=== PATIENT | female | born 1955 | race Caucasian/White ===

== ENCOUNTER 2016-07-20 08:46 | Outpatient (CLI) | payer OTHER | END 2016-07-20 08:47 | disposition home or self-care (01) | DX: Z12.2 Encounter for screening for malignant neoplasm of respiratory organs (principal); I71.4 Abdominal aortic aneurysm, without rupture; F17.210 Nicotine dependence, cigarettes, uncomplicated ==

== ENCOUNTER 2016-08-26 15:39 | Outpatient (CLI) | payer OTHER ==
--- NOTE | 2016-08-27 16:40 | Mammography Report ---
DIGITAL SCREENING MAMMOGRAM: 08/26/2016 CLINICAL INDICATION: A 61-year-old for screening. COMPARISON: 01/2015, 02/2013. TECHNIQUE: Routine CC and MLO projections as well as bilateral laterally exaggerated craniocaudal vi ews were obtained of the breasts. The breasts again demonstrate heterogeneously dense fibroglandular parenchyma bilaterally. Coarse an d punctate, typically benign calcifications are present. No suspicious masses, clustered microcalcif ication, or regions of architectural distortion are appreciated. IMPRESSION: BENIGN FINDINGS. RECOMMENDATION: ROUTINE ANNUAL SCREENING UNLESS OTHERWISE CLINICALLY INDICATED. BIRADS CATEGORY: 2, BENIGN FINDINGS. STANDARD QUALIFYING STATEMENTS 1. This examination was reviewed with the aid of Computed-Aided Detection (CAD). 2. A negative or benign imaging report should not delay biopsy if clinically suspicious findings are present. Consider surgical consultation if warranted. More than 5% of cancers are not identified b y imaging. 3. Dense breasts may obscure an underlying neoplasm. JOB #: [id number] EXT JOB #:[id number]
== END 2016-08-26 15:40 | disposition home or self-care (01) ==
LOC: DI.N 15:39
PROVIDERS: ATTEND Physician Assistant Medical
DX: Z12.31 Encounter for screening mammogram for malignant neoplasm of breast (principal)
CPT/HCPCS: 77067

== ENCOUNTER 2017-04-07 16:48 | Outpatient (CLI) | payer MEDICAID ==
--- NOTE | 2017-04-08 10:06 | Ultrasound Preliminary Report ---
Exam: US RETROPERITONEAL LIMITED IMPRESSION: Distal abdominal aortic aneurysm measuring up to 4.5 cm. Recommend correlate with any ron or imaging of the abdomen for stability. [facility] SITE ID: [id number]
--- NOTE | 2017-04-08 10:29 | Ultrasound Report ---
EXAM: AORTIC DOPPLER ULTRASOUND EXAM DATE: 04/07/2017 05:01 PM. CLINICAL HISTORY: Abdominal aortic aneurysm. COMPARISON: CT chest 07/20/2016. TECHNIQUE: Real-time sonographic imaging of retroperitoneal vascular structures, including color-flow , Doppler flow and spectral analysis was performed by the hospital cleaning specialist. Multiple retail account representative static images were saved for review. FINDINGS: Aorta: The abdominal aorta was adequately visualized. Moderate to severe atherosclerosis in the abdom inal aorta with large lobulated and likely calcified plaques. Fusiform aneurysmal dilatation of the distal aorta measuring up to 4.5 cm. This was only partially vi sualized on prior chest CT where the visualized portion measuring up to 4.5 cm. Aorta: Proximal: Sagittal AP: 2.0 cm. Mid: Transverse: 1.6 x 2.2 cm. Distal: Transverse: 4.5 x 4.0 cm. Iliacs: Right Iliac: Transverse: 1.0 x 0.78 cm. Left Iliac: Transverse: 1.1 x 0.98 cm. Distal Aorta PSV: 109 cm/sec, AAA. Iliac Vessels: The visualized proximal common iliac arteries are normal in caliber. Other: None. IMPRESSION: Distal abdominal aortic aneurysm measuring up to 4.5 cm. Recommend correlate with any ron or imaging of the abdomen for stability. [facility] Referring Provider Line: [phone] SITE ID: [id number]
== END 2017-04-07 16:49 | disposition home or self-care (01) ==
LOC: DI 16:48
PROVIDERS: ATTEND Physician Assistant Medical
DX: I71.4 Abdominal aortic aneurysm, without rupture (principal)
CPT/HCPCS: 76775

== ENCOUNTER 2017-10-10 08:00 | Outpatient (CLI) | payer MEDICAID ==
[2017-10-10 13:04] LABS: BASOPHILS % (AUTO) 0.6 %; EOSINOPHILS # (AUTO) 0.2 10^3/uL (0.0-0.7); EOSINOPHILS % (AUTO) 2.1 %; LYMPHOCYTES # (AUTO) 1.6 10^3/uL (1.5-3.5); LYMPHOCYTES % (AUTO) 21.3 %; MEAN CORPUSCULAR HEMOGLOBIN 29.3 pg (27.0-31.0); MEAN CORPUSCULAR HGB CONC 32.4 g/dL (32.0-36.0); MEAN CORPUSCULAR VOLUME 90.4 fL (81.0-99.0); MEAN PLATELET VOLUME 8.7 fL (7.9-10.8); MONOCYTES # (AUTO) 0.7 10^3/uL (0.0-1.0); MONOCYTES % (AUTO) 10.3 %; NEUTROPHILS # (AUTO) 4.8 10^3/uL (1.5-6.6); NEUTROPHILS % (AUTO) 65.7 %; PLT - PLATELET COUNT 281 10^3/uL (130-450); RED BLOOD COUNT 4.79 10^6/uL (4.20-5.40); RED CELL DISTRIBUTION WIDTH 14.6 % (12.0-15.0); WHITE BLOOD COUNT 7.3 x10^3/uL (4.8-10.8)
[2017-10-10 13:20] LABS: ALBUMIN 3.4 g/dL (3.2-5.5); ALKALINE PHOSPHATASE 66 IU/L (42-121); ALT ALANINE AMINOTRANSFERASE 40 IU/L (10-60); AST ASPARTATE AMINOTRANSFERASE 23 IU/L (10-42); BILIRUBIN,TOTAL 0.6 mg/dL (0.2-1.0); BUN - BLOOD UREA NITROGEN 12 mg/dL (6-20); CALCIUM 8.9 mg/dL (8.5-10.3); CARBON DIOXIDE - CO2 25 mmol/L (21-32); CHLORIDE 104 mmol/L (101-111); CHOL/HDL RATIO 6.8 (<4.4); CHOLESTEROL 191 mg/dL; CREATININE 0.7 mg/dL (0.4-1.0); GFR - MDRD 85 (>89); GLUCOSE 116 mg/dL (70-100); HDL CHOLESTEROL 28 mg/dL; LDL CHOLESTEROL,CALCULATED 138 mg/dL; LDL/HDL RATIO 4.9 (<4.4); SODIUM 138 mmol/L (135-145); TOTAL PROTEIN 6.9 g/dL (6.7-8.2); VLDL CHOLESTEROL 25 mg/dL
== END 2017-10-10 08:01 | disposition home or self-care (01) ==
LOC: LAB.WCP 08:00
PROVIDERS: ATTEND Physician Assistant Medical
DX: Z00.00 Encounter for general adult medical examination without abnormal findings (principal)
CPT/HCPCS: 36415; 80053; 80061; 83721; 84443; 85025

== ENCOUNTER 2017-12-24 11:11 | Outpatient (CLI) | payer MEDICAID | END 2017-12-24 11:12 | disposition home or self-care (01) | LOC: RT 11:11 | PROVIDERS: ATTEND Internal Medicine Gastroenterology | DX: I10 Essential (primary) hypertension (principal) | CPT/HCPCS: 93005 ==

== ENCOUNTER 2017-12-29 06:15 | Day surgery (SDC) | payer MEDICAID ==
[2017-12-29] MEDS ORDERED: ceFAZolin 2 GM/50 ML 2 GM/50 ML BAG IV ONE (06:30)
[2017-12-29] MEDS ORDERED: LACTATED RINGERS 1,000 ML IV ONE (06:30)
--- NOTE | 2017-12-29 07:20 | ANESTHESIA ---
Pre-Anesthesia VS, & Labs - NPO >8 hours - Is Patient ?: No - Diagnosis Right inguinal hernia (Ramsey Lau P) Right inguinal hernia (Christelle Johnson) - Procedure Right inguinal hernia repair (Ramsey Lau) Right inguinal hernia repair (Christelle Johnson) Vital Signs: Temp Pulse Resp BP Pulse Ox 36.6 C 54 L 18 166/88 H 97 12/29/17 06:30 12/29/17 06:30 12/29/17 06:30 12/29/17 06:30 12/29/17 06:30 Height 5 ft 7 in Weight (kg) 83.3 kg Home Medications and Allergies Home Medications: Ambulatory Orders Albuterol Sulfate [Proair Hfa Inhaler] 2 inhaler IH BID 12/26/17 Losartan [Cozaar] 2 tab PO DAILY 12/26/17 Mometasone/Formoterol [Dulera 200 Mcg/5 Mcg Inhaler] 2 inhaler IH BID 12/26/17 Albuterol Sulfate [Proair Hfa Inhaler] 2 inhaler IH BID 12/26/17 Losartan [Cozaar] 2 tab PO DAILY 12/26/17 Mometasone/Formoterol [Dulera 200 Mcg/5 Mcg Inhaler] 2 inhaler IH BID 12/26/17 Allergies/Adverse Reactions: Allergies Allergy/AdvReac Type Severity Reaction Status Date / Time Penicillins Allergy Rash Verified 11/12/14 19:29 Anes History & Medical History - Anesthetic History Anesthesia Complications: reports: No previous complications - Medical History Cardiovascular: reports: Congestive heart failure, Hypertension, Other Pulmonary: reports: COPD Gastrointestinal: reports: None Urinary: reports: None Neuro: reports: None Musculoskeletal: reports: Osteoarthritis, Chronic back pain, Other Endocrine/Autoimmune: reports: Other Skin: reports: Psoriasis Smoking Status: Current every day smoker Psychosocial: reports: No issues indicated - Surgical History Eyes Ears Nose Throat (EENT): Other Gynecologic: Tubal ligation, Other Results - EKG Results EKG Comparison: Reviewed EKG Exam General: Alert, Oriented x3 Dental: Dentures full Upper, Dentures full Lower Mouth Opening: Greater than 4 Fingerbreadths Mallampati classification: II Respiratory: Lungs clear, Decreased breath sounds Cardiovascular: Regular rate, Normal S1, Normal S2 Mental/Cognitive Status: Alert/Oriented X3 Plan Anesthesia Type: MAC Consent for Procedure(s) Verified and Reviewed: Yes Code Status: Attempt Resuscitation ASA classification: 3-Severe systemic disease Is this case an emergency?: No
[2017-12-29] MEDS ORDERED: LIDOCAINE 1%-EPI 1:100000 30 ML MDV ONE (07:21)
[2017-12-29] MEDS ORDERED: BUPIVACAINE 0.5%-EPI 1:200000 PF 30 ML VIAL ONE ×2 (07:21→07:56)
[2017-12-29] MEDS ORDERED: BUPIVACAINE 0.5% PF 30 ML VIAL ONE ×2 (07:22→08:12)
[2017-12-29] MEDS ORDERED: ceFAZolin 1 GM VIAL ONE (07:24)
[2017-12-29] MEDS ORDERED: GLYCOPYRROLATE 1 MG/5 ML VIAL IVP ONE (07:30)
[2017-12-29] MEDS ORDERED: KETAMINE 500 MG/10 ML VIAL IVP ONE (07:30)
[2017-12-29] MEDS ORDERED: MIDAZOLAM 2 MG/2 ML VIAL IVP ONE (07:30)
[2017-12-29] MEDS ORDERED: KETOROLAC 30 MG/ML VIAL IVP ONE (07:30)
[2017-12-29] MEDS ORDERED: SODIUM CHLORIDE 0.9% 10 ML VIAL IV ONE (07:30)
[2017-12-29] MEDS ORDERED: LIDOCAINE-MPF 2% 5 ML VIAL IM ONE (07:30)
[2017-12-29] MEDS ORDERED: ONDANSETRON 4 MG/2 ML VIAL IVP ONE (07:30)
[2017-12-29] MEDS ORDERED: PROPOFOL 200 MG/20 ML VIAL IVP ONE (07:30)
[2017-12-29] MEDS ORDERED: ePHEDrine 50 MG/ML VIAL IVP ONE (07:30)
[2017-12-29] MEDS ORDERED: DEXAMETHASONE 4 MG/ML VIAL IVP ONE (07:30)
[2017-12-29] MEDS ORDERED: LIDOCAINE 1%-EPI 1:100000 20 ML MDV SUBQ ONE (07:48)
[2017-12-29] MEDS ORDERED: BUPIVACAINE 0.5% PF 30 ML VIAL INFIL ONE (07:48)
[2017-12-29] MEDS ORDERED: ceFAZolin 1 GM VIAL IR ONE (08:19)
[2017-12-29] MEDS ORDERED: ACETAMINOPHEN 325 MG TABLET PO PRN (09:28)
[2017-12-29] MEDS ORDERED: IBUPROFEN 600 MG TABLET PO PRN (09:28)
[2017-12-29] MEDS ORDERED: oxyCODONE 5 MG TABLET PO PRN (09:28)
[2017-12-29] MEDS ORDERED: ONDANSETRON 4 MG/2 ML VIAL IVP PRN (09:28)
--- NOTE | 2017-12-29 10:45 | OPERATIVE REPORT ---
DATE OF SERVICE: 12/29/2017 Physician: Jesus Colunga MD PREOPERATIVE DIAGNOSIS: Symptomatic right inguinal hernia. POSTOPERATIVE DIAGNOSES: 1. Symptomatic right inguinal hernia. 2. Large spermatic cord lipoma. PROCEDURES PERFORMED: 1. Open repair of right inguinal hernia with Bard mesh PerFix plug. 2. Resection of spermatic cord lipoma. ANESTHESIA: Local converted to general by Juan Jose Lau CRNA. SURGEON: Jesus Colunga MD. ESTIMATED BLOOD LOSS: 10 mL. COMPLICATIONS: None. FINDINGS: A large spermatic cord lipoma was present over 5 cm in greatest dimension, and a moderate to large indirect inguinal hernia was also identified. There was evidence no of direct or femoral he rnia. INDICATIONS: Mansi Bobo is a 62-year-old woman with a progressively enlarging and increasingly p ainful right groin bulge. Examination revealed a reducible right groin hernia. She was advised to u [facility] operative repair. TECHNIQUE: After informed consent, the patient was taken to the operating room, where she was sedate d and monitored and subsequently converted to general anesthesia. Please see the anesthesia note for details. Preoperative preparation included application of sequential calf compression boots, admini stration of 2 grams cefazolin intravenously within an hour of the incision. Her right groin had been clipped and was prepared with iodoform solution, following which a right groin block was instituted, using a 50:50 combination of 1% lidocaine plain and 0.5% Marcaine with epinephrine; a total of 60 mL of mixture was used. The right groin was re-prepared with ChloraPrep solution and draped in the usu al sterile fashion. Transverse incision was made in the skin lines of the right groin, just above th e pubic tubercle, and was extended laterally approximately 5-6 cm. Hemostasis was achieved with elec trocautery. The procedure was somewhat technically difficult, due to marked truncal obesity. The in cision was carried down through the subcutaneous tissues, until the external oblique aponeurosis was identified and was incised along the lines of its fibers, in such a manner as to open the external ri ng and expose the internal ring. The nuchal ligament was carefully dissected, isolating a fatty soft -tissue mass, consistent with the equivalent of a spermatic cord lipoma. This was dissected free fro m surrounding nuchal ligamentous structures, ligated with 2-0 Vicryl ties, amputated, and discarded. The indirect hernia sac was similarly identified, dissected free from surrounding nuchal ligamentous structures. It was opened, and a finger was inserted in the peritoneal cavity. A search for direct and femoral hernias was made; none were identified. The hernia sac was twisted and doubly highly li gated with 2-0 silk suture ligatures. Excess hernia sac was amputated and discarded. The internal r ing was dilated because of the large indirect sac, and a Bard PerFix plug and patch technique was use d for the reconstruction. Both were soaked in the antibiotic solution, containing 1 gram of cefazoli n per liter. Hemostasis was assured, and the wound irrigated with antibiotic solution, and the ingui nal floor completely exposed, and the nuchal ligament excised. The plug was placed into the internal ring and was seen to lie in situ nicely. The patch was trimmed to appropriate size to cover the ent celine inguinal floor, as well as the internal ring, and was secured in place with continuous 3-0 Prolen e sutures, securing the mesh circumferentially to the inguinal floor. After hemostasis was assured, the wound was then irrigated with antibiotic solution, following which wound closure was accomplished in layers, using continuous 2-0 Vicryl reapproximating the external oblique aponeurosis, followed by 3-0 Vicryl for Mannie's fascia and 4-0 Monocryl subcuticular skin closure, followed by Dermabond. T his procedure was terminated, and the patient was transferred out of the operating room in satisfacto ry condition. Sponge and needle counts were correct x2, and no drains were used. cc: Liberty Garcia PA-C TD: 12/29/2017 09:45
[2017-12-29 10:51] VITALS: BP 150/77
== END 2017-12-29 06:16 | disposition home or self-care (01) ==
LOC: SDS 06:15
PROVIDERS: ATTEND Internal Medicine Gastroenterology
PROC: 0YU50JZ Supplement Right Inguinal Region with Synthetic Substitute, Open Approach (ICD-10-PCS; principal; 2017-12-29 07:30)
DX: K40.90 Unilateral inguinal hernia, without obstruction or gangrene, not specified as recurrent (principal); D17.79 Benign lipomatous neoplasm of other sites; I10 Essential (primary) hypertension; J44.9 Chronic obstructive pulmonary disease, unspecified; F17.210 Nicotine dependence, cigarettes, uncomplicated; I71.4 Abdominal aortic aneurysm, without rupture
CPT/HCPCS: 49505; C1781; J0690; J7120

== ENCOUNTER 2018-01-19 10:52 | Outpatient (CLI) | payer MEDICAID ==
--- NOTE | 2018-01-19 13:41 | CT Report ---
Reason: TABACCO DEPENDENCE Procedure Date: 01/19/2018 Accession Number: [id number] / [id number] Procedure: CT - Chest/Lung Screen Low Dose W/O CPT Code: FULL RESULT: EXAM CT LUNG SCREEN EXAM DATE: 01/19/2018 11:05 AM. HISTORY: 62-year-old patient with [id number]-yrsh smoking history. Currently smoking: Yes. COMPARISON: CHEST SCREEN LOW DOSE W/O 07/20/2016 8:57 AM. TECHNIQUE: CT examination of the entire thorax without contrast was performed using low-dose technique. Thin section coronal, axial, sagittal and MIP axial images were obtained. In accordance with CT protocol optimization, one or more of the following dose reduction techniques were utilized for this exam: automated exposure control, adjustment of mA and/or KV based on patient size, or use of iterative reconstructive technique. FINDINGS: Nodules: Right upper lobe: None. Right middle lobe: None. Right lower lobe: None. Left upper lobe: None. Left lower lobe: None. Emphysema: Minimal. Pleura: Unremarkable. Aorta: Atherosclerosis. Mediastinum: Unremarkable. Coronary calcifications: Moderate. Other pulmonary findings: None. Other extrapulmonary findings: None. IMPRESSION: Lung-RADS ASSESSMENT CATEGORY: 1 - negative Probability of malignancy: Less than 1%. Please note that partially imaged is marked interval enlargement of an abdominal aortic aneurysm, which likely involves the renal arteries. Although the study is not tailored for this, the visualized portion of the aneurysm measures at least 4.8 cm and I suspect interval enlargement of approximately 1 cm. RECOMMENDATION: Recommended follow up based on Lung-RADS guidelines. Dedicated CTA abdomen and pelvis for full evaluation of this abdominal aortic aneurysm. [facility] The above findings of AAA were discussed with Deb Aguirre by Dr. Jonny Blevins at 13:26 hrs on 01/19/18.
== END 2018-01-19 10:53 | disposition home or self-care (01) ==
LOC: DI 10:52
PROVIDERS: ATTEND Physician Assistant Medical
DX: Z12.2 Encounter for screening for malignant neoplasm of respiratory organs (principal); F17.210 Nicotine dependence, cigarettes, uncomplicated; I71.4 Abdominal aortic aneurysm, without rupture

== ENCOUNTER 2018-01-29 07:58 | Outpatient (CLI) | payer MEDICAID ==
[2018-01-29 08:28] LABS: CALCIUM 9.2 mg/dL (8.5-10.3); CREATININE 0.7 mg/dL (0.4-1.0)
[2018-01-29] MEDS ORDERED: IOPAMIDOL-300 100 ML VIAL ONE (08:36)
[2018-01-29] MEDS ORDERED: IOPAMIDOL-300 100 ML VIAL IVP ONE (09:42)
--- NOTE | 2018-01-29 10:55 | CT Report ---
Reason: ABDOMINAL AORTIC ANEURYSM Procedure Date: 01/29/2018 Accession Number: [id number] / [id number] Procedure: CT - Abdomen/Pelvis Angio CPT Code: FULL RESULT: EXAM: CT ANGIOGRAM ABDOMEN AND PELVIS WITH CONTRAST EXAM DATE: 01/29/2018 09:10 AM. CLINICAL HISTORY: Abdominal aortic aneurysm. COMPARISONS: RETROPERITONEAL LIMITED 04/07/2017 5:01 PM. TECHNIQUE: Routine helical CT angiogram imaging was performed through the abdomen and pelvis in the arterial phase. IV contrast: Isovue 300 100 mL. Enteric contrast: No. Reconstructions: Coronal, sagittal, and 3D MIP reconstructions. In accordance with CT protocol optimization, one or more of the following dose reduction techniques were utilized for this exam: automated exposure control, adjustment of mA and/or KV based on patient size, or use of iterative reconstructive technique. FINDINGS: Vasculature: There is abdominal aortic aneurysm which begins just below the takeoff of the right renal artery and extends to the bifurcation. Maximum transverse dimension is 4.5 cm is measured on sagittal reconstructions. There is moderate atheromatous plaque throughout the aneurysm but no evidence of leak or rupture. There is focal narrowing of the takeoff of the ANIL off the anterior aspect of the aneurysm as seen on axial image 95, but the distal vessel is patent. Mild aneurysmal dilatation of the right distal common iliac artery at 1.6 cm. Note: Both common iliac arteries have a tortuous course. Lung Bases: Normal. Abdominal Solid Organs: Normal. The liver, spleen, pancreas, adrenal glands, gallbladder and kidneys are normal in size and demonstrate no masses or abnormal enhancement. Peritoneal Cavity: Normal. No free fluid, free air, or acute inflammatory process. Pelvic Organs: Normal. The bladder and visualized pelvic organs are within normal limits. Bones: No significant abnormality. Other: There is a 3 cm fluid collection in the right inguinal canal with overlying stranding density in the fat presumably sequela of the recent procedure/herniorrhaphy. Fat-containing left internal hernia is noted. IMPRESSION: 1. 4.5 cm maximal dimension abdominal aortic aneurysm extending from the renal artery origin to the bifurcation as described. 2. 1.6 cm aneurysm dilatation of the distal right common iliac artery. Note: Both common iliac artery courses are tortuous. [facility]
== END 2018-01-29 07:59 | disposition home or self-care (01) ==
LOC: LAB 07:58 → DI 07:59
PROVIDERS: ATTEND Physician Assistant Medical
DX: I71.4 Abdominal aortic aneurysm, without rupture (principal)
CPT/HCPCS: 36415; 74174; 80048; Q9967

== ENCOUNTER 2018-06-25 14:09 | Outpatient (CLI) | payer MEDICAID | END 2018-06-25 14:10 | disposition critical access hospital (66) | LOC: EMS 14:09 | PROVIDERS: ATTEND Surgery | DX: R42 Dizziness and giddiness (principal); R20.0 Anesthesia of skin; R20.2 Paresthesia of skin | CPT/HCPCS: A0425; A0429; A0999 ==

== ENCOUNTER 2018-06-25 14:34 | Emergency (ER) | payer MEDICAID ==
--- NOTE | 2018-06-25 14:46 | ED Physician Documentation ---
History of Present Illness - Stated complaint Stated Complaint: ELEVATED BP - Chief complaint Chief Complaint: Cardiac - History obtained from History obtained from: Patient, EMS - History of Present Illness Timing: Today (This is a 63-year-old woman with history of COPD and hypertension. She is on lisinopril and diltiazem which she takes at night and did take them last night. She was sitting on the couch and started to feel vertiginous for about a minute and felt ill. There is no associated chest pain or trouble breathing. After that she subsequently took her blood pressure repeatedly and it was high and presents for further evaluation and treatment for that. At this point she feels back to normal without chest pain or trouble breathing. 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: Tubal ligation, Other HEENT: Other - Present Medications Home Medications: Ambulatory Orders Medication Instructions Recorded Confirmed Mometasone/Formoterol [Dulera 200 2 inhaler IH BID 12/26/17 12/29/17 Mcg/5 Mcg Inhaler] RX: Lisinopril 20 mg PO 06/25/18 06/25/18 dilTIAZem HCl [Diltiazem ER] 120 mg PO 06/25/18 06/25/18 - Allergies Allergies/Adverse Reactions: Allergies Allergy/AdvReac Type Severity Reaction Status Date / Time Penicillins Allergy Rash Verified 06/25/18 14:39 - Social History Does the pt smoke?: Yes Smoking Status: Current every day smoker Does the pt have substance abuse?: No - Immunizations Immunizations are current?: Yes Immunizations: TDAP current <10years PD ED PE NORMAL - Vitals Vital signs reviewed: Yes - General General: Alert and oriented X 3, No acute distress - HEENT HEENT: PERRL, EOMI, Pharynx benign - Neck Neck: Supple, no meningeal sign, No bony TTP - Cardiac Cardiac: RRR, No murmur - Abdomen Abdomen: Normal bowel sounds, Non tender - Neuro Neuro: Alert and oriented X 3, cable assembler and swager 2-12 intact, Other (NIHSS zero (1445)) Eye Opening: Spontaneous Motor: Obeys Commands Verbal: Oriented GCS Score: 15 - Psych Psych: Normal mood Results - Vitals Vitals: Vital Signs - 24 hr 06/25/18 06/25/18 14:35 15:40 Temperature 35.7 C L 36.4 C L Heart Rate 63 60 Respiratory 18 18 Rate Blood Pressure 184/91 H 156/101 H O2 Saturation 94 95 Oxygen O2 Source Room air - EKG (time done) 1448 Rate: Rate (enter#) (58) Rhythm: NSR [place]: Normal Intervals: Other (IVCD qrsd 122 with LAD) QRS: Normal Ischemia: Normal ST segments Computer interpretation: Agree with computer - Labs Labs: Laboratory Tests 06/25/18 15:00 Sodium 140 Potassium 3.7 Chloride 103 Carbon Dioxide 28 Anion Gap 9.0 BUN 17 Creatinine 0.7 Estimated GFR (MDRD) 85 L Glucose 106 H Calcium 9.9 Total Bilirubin 0.4 AST 18 ALT 20 Alkaline Phosphatase 86 Total Protein 7.6 Albumin 4.4 Globulin 3.2 Albumin/Globulin Ratio 1.4 Lipase 38 PD MEDICAL DECISION MAKING - ED course ED course: 63-year-old woman who presents with high blood pressures after a vertigo episode. She is now asymptomatic. Her exam is normal. Watchful waiting and follow-up with her PCP and continuation of her current antihypertensives was advised. Departure - Departure Disposition: 01 Home, Self Care Clinical Impression: Vertigo, Hypertension Condition: Good Record reviewed to determine appropriate education?: Yes Comments: Continue usual blood pressure medications. Do not check your blood pressure anymore today, check it once tomorrow. If it is still out of range follow-up with your doctor in a week for recheck. Return for new or worsening symptoms. Discharge Date/Time: 06/25/18 15:41
[2018-06-25 15:34] LABS: ALBUMIN 4.4 g/dL (3.2-5.5); ALBUMIN/GLOBULIN RATIO 1.4 (1.0-2.2); BILIRUBIN,TOTAL 0.4 mg/dL (0.2-1.0); CALCIUM 9.9 mg/dL (8.5-10.3); CREATININE 0.7 mg/dL (0.4-1.0); TOTAL PROTEIN 7.6 g/dL (6.7-8.2)
[2018-06-25 15:40] VITALS: BP 156/101
== END 2018-06-25 15:41 | disposition home or self-care (01) ==
LOC: EDUNIT# → ED 14:34
DX: R42 Dizziness and giddiness (principal); I11.0 Hypertensive heart disease with heart failure; I50.9 Heart failure, unspecified
CPT/HCPCS: 36415; 80053; 83690; 93005; 99283

== ENCOUNTER 2018-07-23 17:31 | Outpatient (CLI) | payer MEDICAID ==
[2018-07-23] MEDS ORDERED: GADOBUTROL 10 MMOL/10 ML VIAL ONE (18:14)
[2018-07-23] MEDS ORDERED: GADOBUTROL 10 MMOL/10 ML VIAL IVP ONE ×2 (18:42)
--- NOTE | 2018-07-24 08:48 | MRI Report ---
Reason: HYPERTENSION, VISUAL CHANGES Procedure Date: 07/23/2018 Accession Number: [id number] / [id number] Procedure: MRI - Brain W/WO CPT Code: FULL RESULT: EXAM: MRI BRAIN WITHOUT AND WITH CONTRAST EXAM DATE: 07/23/2018 07:15 PM. CLINICAL HISTORY: 63-year-old female. HYPERTENSION, VISUAL CHANGES. COMPARISON: None. TECHNIQUE: Multiplanar, multisequence T1-weighted and fluid-sensitive MR sequences of the brain were performed. Sequences optimized for routine evaluation. Other: None. IV Contrast: 8 ML Gadavist. FINDINGS: Brain Volume: Normal for age. Parenchyma: No acute hemorrhage, mass, or infarct. Moderate scattered T2/FLAIR hyperintense periventricular, deep, and subcortical white matter lesions within cerebral hemispheres bilaterally. No abnormal enhancement. No parenchymal foci of susceptibility artifact. Ventricles/Cisterns: No hydrocephalus. No abnormal extra-axial fluid collection or hemorrhage. Orbits: The optic globes bilaterally are unremarkable. The optic nerves bilaterally are unremarkable. The remaining orbital structures bilaterally are unremarkable. No associated abnormal enhancement. Sella Turcica: The pituitary gland, cavernous sinuses, suprasellar cistern and optic chiasm are unremarkable. IAC: Symmetric and unremarkable. Vasculature: Normal signal flow void is seen in the major arterial structures at the skull base. The dural sinuses are patent and enhance normally. Sinuses: Mild mucosal thickening left maxillary sinus and left ethmoid air cells. Small left mastoid effusion. The right mastoid air cells are clear. Bones: No focal pathologic appearing marrow signal changes. Other: None. IMPRESSION: 1. No MRI evidence of acute intracranial abnormality. Specifically, no evidence of acute or subacute infarct, acute intracranial hemorrhage, mass, midline shift, or hydrocephalus. No abnormal intracranial enhancement. 2. Moderate scattered T2/FLAIR hyperintense periventricular, deep, and subcortical white matter lesions within cerebral hemispheres bilaterally. These lesions are nonspecific, and can be seen with the entire gamut of white matter conditions, including migraine headaches and as sequela of chronic microangiopathy. 3. Unremarkable MRI appearance of the orbits. [facility]
== END 2018-07-23 17:32 | disposition home or self-care (01) ==
LOC: DI 17:31
PROVIDERS: ATTEND Physician Assistant Medical
DX: I10 Essential (primary) hypertension (principal); H53.9 Unspecified visual disturbance
CPT/HCPCS: 70553; A9585

== ENCOUNTER 2018-08-26 14:46 | Outpatient (CLI) | payer MEDICAID ==
--- NOTE | 2018-08-26 15:55 | Mammography Report ---
Reason: ROUTINE MAMMO Procedure Date: 08/26/2018 Accession Number: [id number] / [id number] Procedure: CE - Screening Mammo Dig Bilat CPT Code: FULL RESULT: EXAM: Screening Mammo Dig Bilat DATE: 08/26/2018 3:16 PM CLINICAL HISTORY: Screening TECHNIQUE: (B) - Bilateral CC and MLO views were obtained. COMPARISON: 08/26/2016, 02/08/2015 PARENCHYMAL PATTERN: (A) - The breasts demonstrate scattered fibroglandular densities bilaterally. FINDINGS: Stable long-standing bilateral benign-appearing non-pleomorphic microcalcifications. No suspicious findings in either breast. No significant change. IMPRESSION: Negative examination. BI-RADS category 1. RECOMMENDATION: (ANNUAL) - Recommend routine annual screening mammography. BI-RADS CATEGORY: (1) - Negative. STANDARD QUALIFYING STATEMENTS: 1. This examination was not reviewed with the aid of Computer-Aided Detection (CAD). 2. A negative or benign imaging report should not preclude biopsy if clinically suspicious findings are present. 3. Dense breasts may obscure an underlying neoplasm. 4. This examination was reviewed without the aid of 3D breast imaging (tomosynthesis).
== END 2018-08-26 14:47 | disposition home or self-care (01) ==
LOC: DI 14:46
DX: Z12.31 Encounter for screening mammogram for malignant neoplasm of breast (principal)
CPT/HCPCS: 77067

== ENCOUNTER 2018-09-25 09:55 | Outpatient (CLI) | payer MEDICAID ==
--- NOTE | 2018-09-28 17:09 | Ultrasound Report ---
Reason: NON HEALING ABSCESS Procedure Date: 09/25/2018 Accession Number: [id number] / [id number] Procedure: US - Duplex Lwr Ext Arterial Bilat CPT Code: FULL RESULT: EXAM: BILATERAL LOWER EXTREMITY ARTERIAL DOPPLER ULTRASOUND EXAM DATE: 09/25/2018 10:52 AM. CLINICAL HISTORY: Nonhealing abscess. COMPARISON: None. TECHNIQUE: Real-time sonographic vascular imaging was performed by the furnace helper, utilizing color-flow, Doppler flow, and spectral analysis. Multiple videotape sales representative static images were saved for review. FINDINGS: Bilateral lower extremity arterial duplex examination is performed. Rosales scale Doppler demonstrates atherosclerotic disease throughout both lower extremity systems with shadowing echogenic plaque precluding focal lesional characterization. Right: The right common femoral, deep femoral and superficial femoral arteries as well as the popliteal artery, posterior tibial and peroneal arteries are all patent by color Doppler. The dorsalis pedis artery is patent by color Doppler. Brisk systolic upstrokes are seen in the right lower extremity to the level of the mid SFA. Focal disease in the distal SFA then demonstrates a mild blunting of the waveform downstream which generally retains a brisk systolic upstroke without zeina tardus parvus flow. The anterior tibial artery on the right is then not detected. With flow in the dorsalis pedis artery zeina tardus parvus by waveform. Left: Left common femoral artery, deep femoral artery and superficial femoral artery as well as the left popliteal artery and anterior, posterior and peroneal arteries as well as dorsalis pedis artery are patent by color Doppler. Spectral Doppler demonstrates preservation of brisk systolic upstrokes to the level of the mid SFA. The distal SFA and downstream vessels then demonstrate delayed upstrokes, tardus parvus waveforms presumably due to a focal lesion in the distal SFA. Right Lower Extremity: DIRECT MARKETING COORDINATOR: PSV 176 cm/sec. PSFA: PSV 119 cm/sec. MSFA: PSV 115 cm/sec. DSFA: PSV 45 cm/sec. PFA: PSV 169 cm/sec. POP: PSV 43 cm/sec. LUL: Not seen. COLD PRESS LOADER: PSV 16 cm/sec. NELLIE: PSV 24 cm/sec. DPA: PSV 12 cm/sec. Left Lower Extremity: DIRECT MARKETING COORDINATOR: PSV 107 cm/sec. PSFA: PSV 50 cm/sec. MSFA: PSV 60 cm/sec. DSFA: PSV 22 cm/sec. PFA: PSV 158 cm/sec. POP: PSV 38 cm/sec. LUL: PSV 14 cm/sec. COLD PRESS LOADER: PSV 42 cm/sec. NELLIE: PSV 27 cm/sec. DPA: PSV 15 cm/sec. IMPRESSION: Tardus parvus waveforms below the knee bilaterally with nonvisualization of the right anterior tibial artery. Findings are suggestive of focal high-grade stenosis of the distal SFA, likely at the level of the canal on both sides with downstream tardus parvus waveforms suggestive of hemodynamic significance. Recommendation: Given nonhealing wound and suggestion of vascular compromise, lower extremity angiogram for consideration of intervention is warranted. [facility] The call report notification system was initiated by Dr. Jonny Blevins at 04:32 PM on 09/28/2018. The above call report findings were discussed with Raissa Matthews by Dr. Jonny Blevins at 04:44 PM on 09/28/2018.
== END 2018-09-25 09:56 | disposition home or self-care (01) ==
LOC: DI 09:55
PROVIDERS: ATTEND Podiatrist
DX: L02.416 Cutaneous abscess of left lower limb (principal); M20.5X2 Other deformities of toe(s) (acquired), left foot
CPT/HCPCS: 93925

== ENCOUNTER 2018-10-05 08:00 | Outpatient (CLI) | payer MEDICAID | END 2018-10-05 23:59 | disposition home or self-care (01) | LOC: LAB.R 08:00 | PROVIDERS: ATTEND Physician Assistant Medical | DX: L03.116 Cellulitis of left lower limb (principal) | CPT/HCPCS: 87070; 87205 ==

== ENCOUNTER 2018-10-20 18:11 | Outpatient (CLI) | payer MEDICAID ==
--- NOTE | 2018-10-21 08:15 | Ultrasound Report ---
Reason: PERIPHERAL ARTERIAL INSUFFICIENCY Procedure Date: 10/20/2018 Accession Number: [id number] / [id number] Procedure: US - Ankle Brachial Index CPT Code: FULL RESULT: EXAM: BILATERAL ANKLE/BRACHIAL INDEX EXAM DATE: 10/20/2018 06:57 PM. CLINICAL HISTORY: Peripheral arterial insufficiency. COMPARISON: DUPLEX LWR EXT ARTERIAL BILAT 09/25/2018 10:01 AM. TECHNIQUE: A blood pressure cuff and pulse volume recording Doppler ultrasound was used to evaluate the arterial pressures in the arms and ankle. No images were acquired. FINDINGS: Brachial pressure: Right brachial artery: 151 mmHg, index 1.00 Left brachial artery: 160 mmHg, index 1.00 Right ankle pressures: 83 mmHg, index 0.5 Left ankle pressures: 73 mmHg, index 0.5 Monophasic waveforms are seen in the bilateral posterior tibial and dorsalis pedis arteries. IMPRESSION: 1. Right ankle/brachial index: 0.5. 2. Left ankle/brachial index: 0.5. ANKLE/BRACHIAL INDEX REFERENCE STANDARDS 1.0-1.4: Normal 0.90-0.99: Borderline < 0.9: Abnormal [facility]
== END 2018-10-20 18:12 | disposition home or self-care (01) ==
LOC: DI 18:11
PROVIDERS: ATTEND Physician Assistant Medical
DX: I73.9 Peripheral vascular disease, unspecified (principal); I10 Essential (primary) hypertension
CPT/HCPCS: 93922

== ENCOUNTER 2018-11-27 11:31 | Outpatient (CLI) | payer MEDICAID | END 2018-11-27 11:32 | disposition home or self-care (01) | LOC: DI 11:31 | PROVIDERS: ATTEND Physician Assistant Medical | DX: R01.1 Cardiac murmur, unspecified (principal); I51.7 Cardiomegaly; Q21.9 Congenital malformation of cardiac septum, unspecified | CPT/HCPCS: 93306 ==